=== PATIENT | female | born 1965 | race Caucasian/White ===

== ENCOUNTER 2020-01-26 12:26 | Emergency (ER) | payer OTHER ==
[~2020-01-26] VITALS: Ht 160 cm; Wt 74.8 kg
[2020-01-26] MEDS ORDERED: ZESTRIL10 MG PO (13:33)
[2020-01-26 13:57] VITALS: BP 150/60
--- NOTE | 2020-01-27 08:18 | EKG ---
[facility] [place] [address] ELECTROCARDIOGRAM REPORT Name: DEMETRIS ACOSTA Room #: [facility]#: [id number] Admission: 01/26/20 Attend Phys: Discharge: 01/26/20 Date of : 61 Report #: [id number] THIS REPORT FOR: cc: ARLEEN SOARES TERRI J. PA Lundgren, Craig H. MD [facility] THIS REPORT FOR: //name// [facility] ED Test Date: 2020-01-26 Test Time: 13:34:56 Pat Name: DEMETRIS ACOSTA Department: Room: Gender: [employer] Mechanic: [facility] : 1965 Requested By: Hoa Morales Order Number: [id number] MD: David Morales Measurements Intervals [place] Rate: 84 P: 80 OR: 144 QRS: 26 QRSD: 86 T: 70 QT: 373 QTc: 441 Interpretive Statements Sinus rhythm Normal tracing No previous ECG available for comparison Electronically Signed On 01-27-2020 8:17:56 CDT by David Morales [email or web address] <ELECTRONICALLY SIGNED> By: David Morales MD, [facility] 01/27/20 0817 D: [id number] David Morales MD, FACC /EPI
== END 2020-01-26 14:00 | disposition home or self-care (01) ==
LOC: ER 12:26
DX: I10 Essential (primary) hypertension (principal); G43.909 Migraine, unspecified, not intractable, without status migrainosus